=== PATIENT | female | born 1975 | race Caucasian/White ===

== ENCOUNTER 2022-08-23 03:25 | Emergency (ER) | payer OTHER, SELFPAY ==
--- NOTE | ~2022-08-23 | XR_ITS ---
EXAMINATION: XR foot LT min 3V DATE: 08/23/2022 03:58 INDICATION: Left foot injury and pain and swelling. Great toe erythema. TECHNIQUE: 4 views of left foot were obtained. COMPARISON: None. FINDINGS: There is mild hallux valgus. No fracture. There is mild osteoarthritis of first metatarsoph alangeal joint. IMPRESSION: 1. Mild hallux valgus. 2. Mild osteoarthritis of first metatarsophalangeal joint. Reviewed, dictated and finalized at location A.
[2022-08-23 03:26] VITALS: BP 107/74; PULSE 74; RESP 14; TEMP 36.6; O2SAT 100
--- NOTE | 2022-08-23 04:10 | ED.GENADULT ---
HPI - General Adult General Chief complaint: Extremity Problem,Nontraumatic Stated complaint: left foot pain/swelling Time Seen by Provider: 08/23/22 03:58 History of Present Illness HPI narrative: Patient 46-year-old female who presents the emergency department with chief complaint of right foot pain. The patient reports that she is has history of high arches and reports that she noticed that she started having pain at the base of the right great toe the patient reports that its become swollen red and tender in that area the patient reports no trauma does report that she was walking in her yard and slippers and may have bumped a rock but does not report any lacerations or puncture wounds the patient denies any possibility of foreign body Related Data Allergies Allergy/AdvReac Type Severity Reaction Status Date / Time No Known Allergies Allergy Verified 08/23/22 03:25 Review of Systems Review of Systems: A 10 system review of systems was completed on the patient and is negative except for what is stated in the HPI. Nursing and ancillary documentation was reviewed. Exam Narrative: GENERAL: Well-appearing, well-nourished, and in no acute distress. HEAD: Normocephalic, atraumatic. EYES: PERRLA and EOMI. ENT: Nares clear, no rhinorrhea or epistaxis. Mucous membranes moist. NECK: Supple. CHEST: Clear to auscultation. No respiratory distress. HEART: Regular rate and rhythm. No murmur heard. Normal peripheral pulses. ABDOMEN: Soft, nontender, nondistended, normal active bowel sounds. EXTREMITIES: Normal range of motion. No edema. There is redness and swelling at the base of the left great toe. There is no laceration there is no abrasion there is no fluctuance there is no crepitance SKIN: Warm, dry, no rash. NEURO: No focal deficits. Alert and oriented x3. PSYCH: Normal mood and affect. Course Vital Signs Vital signs: Vital Signs Temperature 36.6 C 08/23/22 03:26 Pulse Rate 74 08/23/22 03:26 Respiratory Rate 14 08/23/22 03:26 Blood Pressure 107/74 08/23/22 03:26 Pulse Oximetry 100 08/23/22 03:26 Oxygen Delivery Room Air 08/23/22 03:26 Temperature 36.6 C 08/23/22 03:26 Pulse Rate 74 08/23/22 03:26 Respiratory Rate 14 08/23/22 03:26 Blood Pressure 107/74 08/23/22 03:26 Pulse Oximetry 100 08/23/22 03:26 Oxygen Delivery Room Air 08/23/22 03:26 Medical Decision Making MDM Narrative Medical decision making narrative: Differential diagnosis includes fracture, foreign body, cellulitis, arthritis. Vital Signs Vital Signs: Vital Signs Temperature 36.6 C 08/23/22 03:26 Pulse Rate 74 08/23/22 03:26 Respiratory Rate 14 08/23/22 03:26 Blood Pressure 107/74 08/23/22 03:26 Pulse Oximetry 100 08/23/22 03:26 Oxygen Delivery Room Air 08/23/22 03:26 Temperature 36.6 C 08/23/22 03:26 Pulse Rate 74 08/23/22 03:26 Respiratory Rate 14 08/23/22 03:26 Blood Pressure 107/74 08/23/22 03:26 Pulse Oximetry 100 08/23/22 03:26 Oxygen Delivery Room Air 08/23/22 03:26 Discharge Plan Discharge Clinical Impression: Cellulitis of foot, left, Arthralgia of foot, left Patient Disposition: Home, Self-Care Condition: Stable Instructions: Antibiotic Form, Cellulitis (ED), Arthralgia (ED) Prescriptions: New diclofenac potassium 50 mg tablet 50 mg PO TID PRN (Reason: pain) Qty: 30 0RF clindamycin HCl 300 mg capsule 300 mg PO Q6H 7 Days Qty: 28 0RF Follow-up/Referrals: Dewayne Blair DO [Physician] - PHYSICIAN,RAIL [employer]ECTOR OPERATOR [Primary Care Provider] - Time of Disposition: 04:13
== END 2022-08-23 04:43 | disposition home or self-care (01) ==
PROVIDERS: Emergency Provider Emergency Medicine
DX: L03.116 Cellulitis of left lower limb (principal); M25.572 Pain in left ankle and joints of left foot
CPT/HCPCS: 73630; 99283